=== PATIENT | male | born 1945 | race Caucasian/White ===

== ENCOUNTER 2017-09-14 14:08 | Observation (INO) | payer MEDICARE, OTHER ==
[~2017-09-14] VITALS: Ht 180.3 cm; Wt 81.8 kg
[~2017-09-14 14:08] MED LIST changes: -CIPRO 500MG TA500 MG PO
[2017-09-14] MEDS ORDERED: CIPRO 500MG TA500 MG PO (14:17)
[2017-09-14 16:07] LABS: COLLECTION METHOD CATHETER
[2017-09-14 16:18] LABS: BASO % 0.3 % (0.0-2.0); EOS # 0.1 (0.0-0.7); EOS % 1.2 % (0-4.0); GRAN # 5.1 (1.4-6.5); GRAN % 69.9 % (42.2-75.2); HEMATOCRIT 41.9 % (42.0-52.0); HEMOGLOBIN 14.7 g/dl (13.5-18.0); LYMPH # 1.5 (1.2-3.4); LYMPH % 20.9 % (20.0-51.0); MEAN CELL VOLUME 96 fl (80.0-100.0); MEAN CORPUSCULAR HEMOGLOBIN 34 pg (27.0-31.0); MEAN CORPUSCULAR HGB CONC 35 g/dl (33.0-37.0); MEAN PLATELET VOLUME 10.2 fl (7.4-10.4); MONO # 0.5 (0.1-0.6); MONO % 7.2 % (1.7-9.3); PLATELET COUNT 165 K/mm3 (130-400); RED BLOOD COUNT 4.38 M/mm3 (4.20-5.60); REDCELL DISTRIBUTION WIDTH-CV 11.4 % (11.5-14.5)
[2017-09-14 16:29] LABS: ALBUMIN 4.4 gm/dL (3.5-5.0); BILIRUBIN,TOTAL 0.5 mg/dL (0.0-1.0); CALCIUM 9.3 mg/dL (8.4-10.2); CREATININE, serum 0.86 mg/dL (0.66-1.25); POTASSIUM 3.8 mmol/L (3.4-5.0); TOTAL PROTEIN 7.2 gm/dL (6.4-8.2)
[2017-09-14 16:45] LABS: URINE COLOR Red
[2017-09-14 16:46] LABS: PH 7 (5-8); URINE APPEARANCE Cloudy; URINE PROTEIN(semi-quant) 2+ (NEGATIVE)
[2017-09-14 16:47] LABS: URINE BILIRUBIN Negative (NEGATIVE); URINE BLOOD 3+ (NEGATIVE); URINE GLUCOSE Negative (NEGATIVE); URINE KETONE Negative (NEGATIVE); URINE LEUKOCYTE ESTERASE Negative (NEGATIVE); URINE NITRATE Negative (NEGATIVE); URINE UROBILINOGEN Negative (NEGATIVE)
[2017-09-14 19:45] VITALS: BP 154/75; PULSE 63; TEMP 97.4
[2017-09-14 20:00] VITALS: BP 147/74; PULSE 63
[2017-09-14 20:15] VITALS: BP 163/79; PULSE 59
[2017-09-14 20:30] VITALS: BP 148/82; PULSE 61
[2017-09-14 21:00] VITALS: BP 139/67; PULSE 61
[2017-09-14 21:30] VITALS: BP 130/69; PULSE 56; TEMP 97.4
[2017-09-15 00:51] VITALS: BP 121/56; PULSE 56; TEMP 97.3
[2017-09-15 05:39] VITALS: BP 120/56; PULSE 58; TEMP 98.2
[2017-09-15 06:55] LABS: GRAN # 4.1 (1.4-6.5); GRAN % 81.2 % (42.2-75.2); HEMATOCRIT 39.1 % (42.0-52.0); HEMOGLOBIN 13.7 g/dl (13.5-18.0); LYMPH # 0.8 (1.2-3.4); MEAN CELL VOLUME 96 fl (80.0-100.0); MEAN CORPUSCULAR HEMOGLOBIN 34 pg (27.0-31.0); MEAN CORPUSCULAR HGB CONC 35 g/dl (33.0-37.0); MEAN PLATELET VOLUME 10.9 fl (7.4-10.4); MONO # 0.1 (0.1-0.6); MONO % 2.4 % (1.7-9.3); PLATELET COUNT 166 K/mm3 (130-400); RED BLOOD COUNT 4.07 M/mm3 (4.20-5.60); REDCELL DISTRIBUTION WIDTH-CV 11.5 % (11.5-14.5)
[2017-09-15 14:00] VITALS: BP 123/53; PULSE 72; TEMP 98
[2017-09-15 18:41] VITALS: BP 128/59; PULSE 76; TEMP 98.1
[2017-09-15 21:54] VITALS: BP 127/58; PULSE 65; TEMP 97
[2017-09-16 00:56] VITALS: BP 134/65; PULSE 63; TEMP 98.2
[2017-09-16 05:24] VITALS: BP 127/61; PULSE 56; TEMP 98
[2017-09-16 09:00] VITALS: BP 130/64; PULSE 67; TEMP 97.9
[2017-09-16 13:41] VITALS: BP 148/72; PULSE 63; TEMP 97.8
== END 2017-09-16 16:25 | disposition home or self-care (01) ==
LOC: COL.ER 14:08 → SURG 15:58
PROVIDERS: Emergency Medicine; Urology
DX: C67.9 Malignant neoplasm of bladder, unspecified (principal); R31.0 Gross hematuria; I10 Essential (primary) hypertension; M19.90 Unspecified osteoarthritis, unspecified site; Z96.651 Presence of right artificial knee joint
CPT/HCPCS: G0378; J2270; J7030; J9280

== ENCOUNTER → 2017-09-14 | Outpatient (CLI) | payer MEDICARE, OTHER ==
[~2017-09-14] MED LIST: AMLODIPINE10 MG PO; CIPRO 500MG TA500 MG PO; FLOMAX0.4 MG PO; FOLIC ACID 40400 MCG PO; IRON325 M1 PO; VITAMIN C500 MG PO
== END ==
LOC: COL.RAD 09:20
DX: N32.89 Other specified disorders of bladder (principal); Z96.0 Presence of urogenital implants
CPT/HCPCS: J0690; J1100; J2250; J2405; J2704; J3010; J7120

== ENCOUNTER 2018-01-18 21:36 | Emergency (ER) | payer MEDICARE, OTHER ==
[~2018-01-18] VITALS: Ht 177.8 cm; Wt 81.8 kg
[~2018-01-18 21:36] MED LIST changes: +CIPRO 500MG TA500 MG PO; +COLACE 100100 MG/CAP PO; +FLOMAX 0.40.4 MG/CAP PO; +FLONASEALLERGY NS; +NORCO 325 MG-51 TAB PO; +NORVASC 10MG10 MG PO; +PYRIDIUM 100MG100 MG PO
[2018-01-18 21:49] VITALS: TEMP 98
[2018-01-19 02:28] VITALS: BP 176/83; PULSE 72
== END 2018-01-19 02:29 | disposition home or self-care (01) ==
LOC: COL.ER 21:36
DX: N13.9 Obstructive and reflux uropathy, unspecified (principal); I10 Essential (primary) hypertension; Z85.51 Personal history of malignant neoplasm of bladder; Z96.0 Presence of urogenital implants; Z98.890 Other specified postprocedural states; Z79.51 Long term (current) use of inhaled steroids

== ENCOUNTER 2018-05-23 11:30 | Day surgery (SDC) | payer MEDICARE, OTHER ==
[~2018-05-23] VITALS: Ht 177.8 cm; Wt 80.3 kg
[2018-05-23] VITALS (8 sets, daily range): BP systolic 129–169; BP diastolic 63–77; PULSE 56–85; TEMP 96.9–98
[2018-05-23] MEDS ORDERED: NORVASC 5MG5 MG/TAB PO (12:04)
[2018-05-23] MEDS ORDERED: FLOMAX 0.40.4 MG/CAP PO (12:04)
== END 2018-05-23 17:24 | disposition home or self-care (01) ==
LOC: SDCO 11:30
DX: C67.9 Malignant neoplasm of bladder, unspecified (principal); N40.0 Benign prostatic hyperplasia without lower urinary tract symptoms; I10 Essential (primary) hypertension; G62.9 Polyneuropathy, unspecified; M19.90 Unspecified osteoarthritis, unspecified site; Q60.0 Renal agenesis, unilateral; Z87.891 Personal history of nicotine dependence
CPT/HCPCS: C1769; C2617; J0690; J1100; J1885; J2405; J2704; J3010; J7120; Q9967

== ENCOUNTER → 2018-06-22 | Outpatient (CLI) | payer MEDICARE, OTHER ==
[~2018-06-22] MED LIST changes: +NORVASC 5MG5 MG/TAB PO
== END ==
LOC: COL.RAD 09:15
DX: Z13.6 Encounter for screening for cardiovascular disorders (principal)

== ENCOUNTER → 2018-06-28 | Outpatient (CLI) | payer MEDICARE, OTHER | LOC: COL.RAD 07:07 | DX: M48.062 Spinal stenosis, lumbar region with neurogenic claudication (principal); M47.816 Spondylosis without myelopathy or radiculopathy, lumbar region; M99.73 Connective tissue and disc stenosis of intervertebral foramina of lumbar region; M89.9 Disorder of bone, unspecified ==

== ENCOUNTER → 2019-02-01 | Outpatient (CLI) | payer MEDICARE, OTHER | LOC: COL.RAD 08:26 | DX: C67.2 Malignant neoplasm of lateral wall of bladder (principal); Q60.0 Renal agenesis, unilateral; N39.43 Post-void dribbling ==

== ENCOUNTER → 2019-06-26 | Outpatient (CLI) | payer MEDICARE, OTHER | LOC: COL.RAD 08:38 | DX: Z13.6 Encounter for screening for cardiovascular disorders (principal); F17.201 Nicotine dependence, unspecified, in remission ==

== ENCOUNTER → 2019-11-12 | Outpatient (CLI) | payer MEDICARE, OTHER | LOC: COL.RAD 07:51 | DX: N13.30 Unspecified hydronephrosis (principal) ==

== ENCOUNTER → 2021-01-15 | Outpatient (CLI) | payer MEDICARE, OTHER ==
[~2021-01-15] MED LIST changes: +ASPIRIN 81M81 MG/TA2 PO; +MULTI VITAMINS1 TAB PO
== END ==
LOC: COL.RAD 07:25
DX: N13.39 Other hydronephrosis (principal); N32.89 Other specified disorders of bladder; Z90.5 Acquired absence of kidney

== ENCOUNTER 2022-02-02 08:17 | Emergency (ER) | payer MEDICARE, OTHER ==
[~2022-02-02] VITALS: Ht 180.3 cm; Wt 81.8 kg
[2022-02-02 08:21] VITALS: TEMP 97.1
[2022-02-02 08:34] LABS: BASO % 0.3 % (0.0-2.0); EOS # 0.2 K/mm3 (0.0-0.7); EOS % 3.2 % (0.0-4.0); GRAN # 2.5 K/mm3 (1.4-6.5); GRAN % 41.8 % (42.2-75.2); HEMATOCRIT 43.9 % (42.0-52.0); HEMOGLOBIN 15.2 g/dl (13.5-18.0); LYMPH # 2.8 K/mm3 (1.2-3.4); MEAN CELL VOLUME 95 fl (80.0-100.0); MEAN CORPUSCULAR HEMOGLOBIN 33 pg (27-31); MEAN CORPUSCULAR HGB CONC 35 g/dl (33.0-37.0); MEAN PLATELET VOLUME 10.4 fl (7.4-10.4); MONO # 0.5 K/mm3 (0.1-0.6); MONO % 8.5 % (1.7-9.3); PLATELET COUNT 170 K/mm3 (130-400); RED BLOOD COUNT 4.61 M/mm3 (4.20-5.60)
[2022-02-02 08:49] LABS: ALBUMIN 4.2 gm/dL (3.4-4.8); BILIRUBIN,TOTAL 0.9 mg/dL (0.2-1.2); CREATININE, serum 0.91 mg/dL (0.72-1.25); POTASSIUM 3.5 mmol/L (3.5-4.5); TOTAL PROTEIN 7.6 gm/dL (6.2-8.1)
[2022-02-02 08:50] LABS: PROTHROMBIN TIME 11.5 SECONDS (9.7-12.8)
[2022-02-02 08:53] LABS: PARTIAL THROMBOPLASTIN TIME 27.6 SECONDS (26.0-37.0)
[2022-02-02 09:04] LABS: TROPONIN-I 0.098 ng/mL (0.00-0.033)
[2022-02-02 09:26] VITALS: BP 98/61; PULSE 87
== END 2022-02-02 09:35 | disposition short-term general hospital (02) ==
LOC: COL.ER 08:17
PROVIDERS: Personal Emergency Response Attendant
DX: I21.3 ST elevation (STEMI) myocardial infarction of unspecified site (principal)
CPT/HCPCS: J1644; J2270; J2405; J3101

== ENCOUNTER 2022-02-22 11:41 | Outpatient (RCR) | payer MEDICARE, OTHER | END 2022-02-25 | disposition home or self-care (01) | LOC: COL.CR | DX: Z48.812 Encounter for surgical aftercare following surgery on the circulatory system (principal); Z98.61 Coronary angioplasty status; I25.2 Old myocardial infarction ==

== ENCOUNTER 2022-03-26 12:12 | Outpatient (RCR) | payer MEDICARE, OTHER | END 2022-03-28 | disposition home or self-care (01) | LOC: COL.CR | DX: Z29.8 Encounter for other specified prophylactic measures (principal); I25.2 Old myocardial infarction; Z98.61 Coronary angioplasty status ==

== ENCOUNTER 2022-04-26 15:01 | Outpatient (RCR) | payer MEDICARE, OTHER | END 2022-04-28 | disposition home or self-care (01) | LOC: COL.CR | DX: Z48.812 Encounter for surgical aftercare following surgery on the circulatory system (principal); Z98.61 Coronary angioplasty status; I25.2 Old myocardial infarction ==

== ENCOUNTER → 2023-10-07 | Outpatient (CLI) | payer MEDICARE ==
[~2023-10-07] MED LIST changes: +COZAAR 50MG50 MG/TAB PO; +LIPITOR 80MG80 MG PO; +PLAVIX 75MG TAB75 MG PO; +TOPROL XL 25MG25 MG PO
== END ==
LOC: COL.RAD 07:24
DX: M47.816 Spondylosis without myelopathy or radiculopathy, lumbar region (principal); M47.817 Spondylosis without myelopathy or radiculopathy, lumbosacral region; M51.36 Other intervertebral disc degeneration, lumbar region; M51.37 Other intervertebral disc degeneration, lumbosacral region; M48.062 Spinal stenosis, lumbar region with neurogenic claudication; N13.30 Unspecified hydronephrosis